=== PATIENT | male | born 2000 | race Two or more races ===

== ENCOUNTER 2025-01-23 08:31 | Emergency (ER) | payer OTHER ==
[~2025-01-23] VITALS: Ht 180.3 cm; Wt 91.3 kg
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
--- NOTE | 2025-01-23 09:33 | DVH ---
XY L FOOT 3 VIEW XRAY, INDICATION: FALL TECHNICAL DATA: Frontal, oblique and lateral views were obtained of the left foot. COMPARISON: None FINDINGS: No fracture is identified. Joint spaces are maintained. Alignment is anatomic. The hallux sesamoids a ppear normal. Soft tissues are within normal limits. IMPRESSION: No acute fracture or dislocation of the left foot.
[2025-01-23] MEDS ORDERED: IBUP-1456 PO (09:44)
[2025-01-23 09:52] VITALS: BP 123/86; PULSE 73; RESP 18; TEMP 97.8; O2SAT 98
== END 2025-01-23 09:53 | disposition home or self-care (01) ==
LOC: ER 08:38
DX: S93.692A Other sprain of left foot, initial encounter (principal); W18.39XA Other fall on same level, initial encounter; Y93.55 Activity, bike riding; Y92.89 Other specified places as the place of occurrence of the external cause; Y99.8 Other external cause status
CPT/HCPCS: 73630